=== PATIENT | female | born 1990 | race African-American/Black ===

== ENCOUNTER 2016-08-26 09:07 | Emergency (ER) | payer OTHER ==
[~2016-08-26] VITALS: Ht 167.6 cm; Wt 90.0 kg
[~2016-08-26 09:07] MED LIST: DIFL150T PO; METR-1 PO; VIBR50SY PO; Z.0.NO CURRENT MEDS
[2016-08-26 09:08] VITALS: BP 134/77; PULSE 104; RESP 20; TEMP 98.2; O2SAT 100
--- NOTE | 2016-08-26 09:47 | PD ---
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 Patient states his bleeding little bit more heavily than she does normally. She states that she had a cyst removed and the hospital in [place] some months ago most came back. She states only minimal pain. Denies any fever, denies any stool changes denies any nausea or vomiting. On review of systems patient does state that she feels somewhat weak. PFSH Past Medical History Diminished Hearing: No Tetanus Vaccination: Never Vaccinated ?: Not LMP: now : 2 Para: 1 Miscarriage: 1 Social History Alcohol Use: No Tobacco Use: Yes (OCCASIONALLY) Substance Use: No Allergies-Medications (Allergen,Severity, Reaction): Coded Allergies: No Known Allergies (Verified , 08/26/16) Reported Meds & Prescriptions Reported Meds & Active Scripts Active Iron High-Potency (Ferrous Sulfate) 325 Mg Tab 1 Tab PO DAILY Review of Systems Except as stated in HPI: all other systems reviewed are Neg Physical Exam Narrative GENERAL: Well-developed well-nourished no obvious distress. SKIN: Focused skin assessment warm/dry. HEAD: Atraumatic. Normocephalic. EYES: Pupils equal and round. No scleral icterus. No injection or drainage. ENT: No nasal bleeding or discharge. Mucous membranes pink and moist. NECK: Trachea midline. No JVD. CARDIOVASCULAR: Regular rate and rhythm. No murmur appreciated. RESPIRATORY: No accessory muscle use. Clear to auscultation. Breath sounds equal bilaterally. GASTROINTESTINAL: Abdomen soft, non-tender, nondistended. Hepatic and splenic margins not palpable. GENITOURINARY: Exam performed with female nurse heating and cooling technician present all times. Scant blood in the vaginal vault, no discharge, cervix closed, no vaginal trauma seen, grossly normal female external genitalia. MUSCULOSKELETAL: No obvious deformities. No clubbing. No cyanosis. No edema. NEUROLOGICAL: Awake and alert. No obvious cranial nerve deficits. Motor grossly within normal limits. Normal speech. PSYCHIATRIC: Appropriate mood and affect; insight and judgment normal. Data Data Last Documented VS Vital Signs Date Time Temp Pulse Resp B/P Pulse Ox O2 Delivery O2 Flow Rate FiO2 08/26/16 12:39 97 08/26/16 09:08 98.2 104 20 134/77 Room Air Orders Urinalysis - C+S If Indicated (08/26/16 09:21) Ed Urine Pregnancytest Poc (08/26/16 09:21) Gc And Chlamydia Pcr (08/26/16 09:22) Wet Prep Profile (08/26/16 09:22) Hemoglobin (Hgb) (08/26/16 09:47) Hematocrit (Hct) (08/26/16 09:47) Ibuprofen (Motrin) (08/26/16 10:00) Urine Culture (08/26/16 10:05) Us Pelvis Comp W Dop Transvag (08/26/16 09:59) Labs Laboratory Tests Test 08/26/16 08/26/16 08/27/16 10:05 11:35 20:38 Hemoglobin 8.3 GM/DL Hematocrit 27.7 % Urine Color YELLOW Urine Turbidity CLEAR Urine pH 7.5 Urine Specific [place] 1.017 Urine Protein TRACE mg/dL Urine Glucose (UA) NEG mg/dL Urine Ketones NEG mg/dL Urine Occult Blood LARGE Urine Nitrite NEG Urine Bilirubin NEG Urine Urobilinogen 2.0 MG/DL Urine Leukocyte Esterase TRACE Urine RBC 155 /hpf Urine WBC 9 /hpf Urine Squamous Epithelial 1 /hpf Cells Urine Bacteria OCC /hpf Urine Mucus FEW /lpf Microscopic Urinalysis Comment CULTURE INDICATED Clue Cells (Wet Prep) NONE SEEN Vaginal Trichomonas (Wet Prep) PRESENT Vaginal Yeast (Wet Prep) NONE SEEN Chlamydia trachomatis DNA NOT DETECTED (PCR) Neisseria gonorrhoeae DNA NOT DETECTED (PCR) Lab Scanned Report Lab Reports - Other [id number] [facility] Medical Decision Making Medical Screen Exam Complete: Yes Emergency Medical Condition: Yes Differential Diagnosis Anemia, dysfunctional uterine bleeding, ovarian cyst, . Narrative Course Patient roomed emerged permit, H&H shows the patient is moderately anemic with hemoglobin 8.7. She will be placed on ferrous sulfate and discharge. Ultrasound was ordered and shows no evidence of recurrence of the cyst, test negative. Patient appears well and in obvious distress. There is no indication further workup at this time. She stable for discharge. Discussed need for follow-up with her surgeon an DIRECTOR INDUSTRIAL RELATIONS. Discussed return to ED criteria. Diagnosis Primary Impression: Dysfunctional uterine bleeding Med/Other Pt SpecificInfo: Prescription(s) given Scripts Ferrous Sulfate (Iron High-Potency)325 Mg Tab1 Tab PO DAILY #30 Prov:Chris Lundberg MD 08/26/16 Disposition: 01 DISCHARGE HOME Condition: Stable Chris Lundberg MD Aug 26, 2016 09:47
[2016-08-26] MEDS ORDERED: IBUPROFEN 600 MG TAB PO ONE (10:00)
[2016-08-26 10:16] LABS: HEMATOCRIT 27.7 % (35.0-46.0)
[2016-08-26 10:38] LABS: BACTERIA, URINE OCC /hpf; BLOOD, URINE LARGE (NEG); COMMENT (UR) CULTURE INDICATED; CULTURE IF INDICATED CULTURE INDICATED; GLUCOSE,URINE NEG (NEG); KETONE, URINE NEG (NEG); MUCUS URINE FEW /lpf (OCC); NITRITE,URINE NEG (NEG); PH, URINE 7.5 (5.0-8.5); SQUAMOUS EPITHELIAL CELL URINE 1 /hpf (0-5); URINE COLOR YELLOW (YELLW/STRAW)
--- NOTE | 2016-08-26 12:22 | RADRPT ---
EXAM DATE/TIME: 08/26/2016 10:28 [place] COMPARISON: No previous studies available for comparison. INDICATIONS : Pelvic pain. MEDICAL HISTORY : Pelvic pain. SURGICAL HISTORY : None. ENCOUNTER: Initial ACUITY: 1 day PAIN SCORE: 3/10 LOCATION: Bilateral pelvis MEASUREMENTS: UTERUS: 9.1 x 5.1 x 4.5 cm ENDOMETRIAL STRIPE: 5 mm RIGHT OVARY: 3.6 x 2.6 x 1.9 cm LEFT OVARY: 3.6 x 2.9 x 2.0 cm FINDINGS: UTERUS: The myometrium has homogeneous echotexture without mass. Nabothian cysts are seen. RIGHT OVARY: Ovary contains no mass or significant cystic lesion. Normal flow. LEFT OVARY: Ovary contains no mass or significant cystic lesion. Normal flow. MISCELLANEOUS: No free fluid. CONCLUSION: 1. Unremarkable pelvic sonogram. Anthony Poon MD on August 26, 2016 at 12:19 Board Certified Radiologist. This report was verified electronically.
[2016-08-26] MEDS ORDERED: FERR1TAB52 PO (12:36)
[2016-08-26 15:15] LABS: CHLAMYDIA PCR NOT DETECTED (NOT DETECT); NEISSERIA PCR NOT DETECTED (NOT DETECT)
[2016-09-03] MEDS ORDERED: SPRI28TA PO (10:35)
== END 2016-08-26 12:46 | disposition home or self-care (01) ==
LOC: NEPD 09:07
DX: N93.8 Other specified abnormal uterine and vaginal bleeding (principal); R10.2 Pelvic and perineal pain; D64.9 Anemia, unspecified; E66.01 Morbid (severe) obesity due to excess calories; Z79.899 Other long term (current) drug therapy; Z72.0 Tobacco use
CPT/HCPCS: 76830; 76856; 81001; 84703; 85014; 85018; 87086; 87210; 87491; 87591; 93975

== ENCOUNTER 2016-08-31 | Emergency (ER) | payer OTHER ==
[~2016-08-31] MED LIST changes: -DIFL150T PO; +FERR1TAB52 PO; -METR-1 PO; -VIBR50SY PO; -Z.0.NO CURRENT MEDS
[2016-08-31 00:03] VITALS: BP 145/72; PULSE 110; RESP 16; TEMP 98.3; O2SAT 99
[2016-08-31 01:06] LABS: MEAN CORPUSCULAR HGB CONC 28.8 % (32.0-36.0)
--- NOTE | 2016-08-31 01:33 | PD ---
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 The patient reports that she has irregular cycles. She has difficulty quantifying exactly when her last cycle was. She reports that she has a history of irregular cycles. She reports that her cycles usually last for weeks when they occur. She reports that she usually will have a cycle every other month. She cannot recall the name of her ADMINISTRATIVE SUPPORT TECHNICIAN. She was seen in the emergency department on August 26 related to the vaginal bleeding. At that time the patient was noted to be anemic with a hemoglobin of 8.3. The patient reports that she was prescribed iron, however she continues to have bleeding. She reports that she feels weak with exertion. She reports that she has had a blood transfusion in the past. She reports that she had a blood transfusion related to dysfunctional uterine bleeding when she was at [facility] a couple months ago. She reports that her ADMINISTRATIVE SUPPORT TECHNICIAN was in that area and she would prefer to follow-up with an ADMINISTRATIVE SUPPORT TECHNICIAN in this area. The patient denies any recent fevers, cough, congestion, neck pain, chest pain, shortness of breath , vomiting, diarrhea, or neurologic symptoms. LMP: 2 weeks ago. [facility] Past Medical History Narrative Medical The patient's past medical history is significant for dysfunctional uterine bleeding requiring a blood transfusion, last blood transfusion was reportedly 2 months ago. Diminished Hearing: No Tetanus Vaccination: > 5 Years Influenza Vaccination: No ?: Unknown LMP: irregular : 2 Para: 1 Miscarriage: 1 Past Surgical History Narrative Surgical The patient's past surgical history is unremarkable. Social History Alcohol Use: No Tobacco Use: Yes (OCCASIONALLY) Substance Use: No Allergies-Medications (Allergen,Severity, Reaction): Coded Allergies: No Known Allergies (Verified , 08/31/16) Reported Meds & Prescriptions Reported Meds & Active Scripts Active Iron High-Potency (Ferrous Sulfate) 325 Mg Tab 1 Tab PO DAILY Review of Systems Except as stated in HPI: all other systems reviewed are Neg General / Constitutional: No: Fever Eyes: No: Visual changes HENT: No: Headaches Cardiovascular: No: Chest Pain or Discomfort Respiratory: No: Shortness of Breath Gastrointestinal: Positive: Abdominal Pain, No: Nausea (cramping), Vomiting, Diarrhea, Changes in Bowel Habits, Indigestion, Loss of Appetite Genitourinary: Positive: Frequency, Pelvic Pain, Vaginal Bleeding, No: Urgency , Dysuria Musculoskeletal: No: Pain Skin: No Rash Neurologic: Positive: Weakness (generalized weakness), No: Focal Abnormalities , Change in Mentation, Slurred Speech, Sensory Disturbance Psychiatric: No: Depression Endocrine: No: Polydipsia Hematologic/Lymphatic: No: Easy Bruising Physical Exam Narrative General: The patient is a well-developed well-nourished female in no acute distress. Head and Neck exam: Head is normocephalic atraumatic. Eyes: EOMI, pupils are equal round and reactive to light. Nose: Midline septum with pink mucous membranes Mouth: Dentition unremarkable. Moist mucus membranes. Posterior oropharynx is not erythematous. No tonsillar hypertrophy. Uvula midline. Airway patent. Neck: No palpable lymphadenopathy. No nuchal rigidity. No thyromegaly. Cardiovascular: Regular rate and rhythm without murmurs, gallops, or rubs. No pulse deficit to the extremities. Lungs: Clear to auscultation bilaterally. No wheezes, rhonchi, or rales. Abdomen: Soft, without tenderness to palpation in all 4 quadrants of the abdomen. No guarding, rebound, or rigidity. Negative [place] sign. Extremities: No clubbing, cyanosis, or edema. 2+ pulses in all 4 extremities. Back: No spinous process tenderness to palpation. No costovertebral angle tenderness to palpation. Neurologic Exam: Cranial nerves 2-12 were intact on exam. Strength is 5/5 in all 4 extremities. No sensory deficits noted. No dysdiadochokinesis. Good finger to nose and Heel to [place] bilaterally. Skin Exam: No rash noted. Intact skin that is warm and dry. Data Data Last Documented VS Vital Signs Date Time Temp Pulse Resp B/P Pulse Ox O2 Delivery O2 Flow Rate FiO2 08/31/16 07:29 98.6 93 19 114/56 100 Room Air Orders Complete Blood Count With Diff (08/31/16 01:04) Comprehensive Metabolic Panel (08/31/16 01:04) Prothrombin Time / Inr (Pt) (08/31/16 01:04) Act Partial Throm Time (Ptt) (08/31/16 01:04) C-Reactive Protein (Crp) (08/31/16 01:04) Lipase (08/31/16 01:04) Urinalysis - C+S If Indicated (08/31/16 01:04) Thyroid Stimulating Hormone (08/31/16 01:04) Iv Access Insert/Monitor (08/31/16 01:04) Ecg Monitoring (08/31/16 01:04) Oximetry (08/31/16 01:04) Metronidazole (Flagyl) (08/31/16 02:00) Urine Culture (08/31/16 01:45) Ceftriaxone Inj (Rocephin Inj) (08/31/16 03:00) Sodium Chlor 0.9% 250 Ml Inj (Ns 250 Ml (08/31/16 03:15) Red Blood Cells (Rbc) (08/31/16 03:01) Sodium Chlor 0.9% 250 Ml Inj (Ns 250 Ml (08/31/16 03:15) Type And Screen (08/31/16 03:01) Blood Product Administration .UPON TRANSFUSION (08/31/16 03:48) Sodium Chlor 0.9% 250 Ml Inj (Ns 250 Ml (08/31/16 04:00) Labs Laboratory Tests Test 08/31/16 08/31/16 08/31/16 01:45 02:00 04:22 Urine Color YELLOW Urine Turbidity HAZY Urine pH 6.0 Urine Specific [place] 1.031 Urine Protein 30 mg/dL Urine Glucose (UA) NEG mg/dL Urine Ketones TRACE mg/dL Urine Occult Blood LARGE Urine Nitrite NEG Urine Bilirubin NEG Urine Urobilinogen 2.0 MG/DL Urine Leukocyte Esterase LARGE Urine RBC /hpf Urine WBC 59 /hpf Urine Squamous Epithelial 2 /hpf Cells Urine Bacteria RARE /hpf Urine Mucus MANY /lpf Urine Yeast (Budding) OCC Microscopic Urinalysis Comment CULTURE INDICATED White Blood Count 15.5 TH/MM3 Red Blood Count 4.12 MIL/MM3 Hemoglobin 7.3 GM/DL Hematocrit 25.3 % Mean Corpuscular Volume 61.4 FL Mean Corpuscular Hemoglobin 17.7 PG Mean Corpuscular Hemoglobin 28.8 % Concent Red Cell Distribution Width 21.8 % Platelet Count 230 TH/MM3 Mean Platelet Volume 8.4 FL Neutrophils (%) (Auto) 67.6 % Lymphocytes (%) (Auto) 24.5 % Monocytes (%) (Auto) 6.5 % Eosinophils (%) (Auto) 0.5 % Basophils (%) (Auto) 0.9 % Neutrophils # (Auto) 10.5 TH/MM3 Lymphocytes # (Auto) 3.8 TH/MM3 Monocytes # (Auto) 1.0 TH/MM3 Eosinophils # (Auto) 0.1 TH/MM3 Basophils # (Auto) 0.1 TH/MM3 CBC Comment AUTO DIFF Differential Comment AUTO DIFF CONFIRMED Platelet Estimate NORMAL Platelet Morphology Comment NORMAL Target Cells 1+ Ovalocytes 1+ Prothrombin Time 11.1 SEC Prothromb Time International 1.0 RATIO Ratio Activated Partial 23.7 SEC Thromboplast Time Sodium Level 139 MEQ/L Potassium Level 3.6 MEQ/L Chloride Level 104 MEQ/L Carbon Dioxide Level 25.7 MEQ/L Anion Gap 9 MEQ/L Blood Urea Nitrogen 8 MG/DL Creatinine 1.04 MG/DL Estimat Glomerular Filtration 77 ML/MIN Rate Random Glucose 88 MG/DL Calcium Level 8.4 MG/DL Total Bilirubin 0.3 MG/DL Aspartate Amino Transf 17 U/L (AST/SGOT) Alanine Aminotransferase 21 U/L (ALT/SGPT) Alkaline Phosphatase 71 U/L C-Reactive Protein 0.42 MG/DL Total Protein 7.5 GM/DL Albumin 3.1 GM/DL Lipase 310 U/L Thyroid Stimulating Hormone 1.190 uIU/ML 3rd Gen Blood Type A POSITIVE A POSITIVE Antibody Screen NEGATIVE Crossmatch Leukocyte-Reduced Red Blood Cells Blood Bank Comment MDM Medical Decision Making Medical Screen Exam Complete: Yes Emergency Medical Condition: Yes Medical Record Reviewed: Yes Differential Diagnosis Dysfunctional uterine bleeding related to hormonal imbalance, versus fibroids, versus adenomyosis. Narrative Course During the course of the patients emergency department visit, the patients history, examination, and differential diagnosis were reviewed with the patient. The patient had IV access obtained and blood work sent for analysis. The patient's was on a cardiac catheterization technologist with oximetry and blood pressure monitoring. The patient's electronic medical record was reviewed. The patient was last seen in the emergency department on August 26. The patient had a hemoglobin done at that time that was noted to be 8.3. The patient had a wet prep done that was positive for trichomoniasis. She reports that she was not treated for this. The patient was initially provided Flagyl 500 mg by mouth. The patients laboratory studies were reviewed and remarkable for a white count of 15.5, hemoglobin 7.3, platelets 230 with 67.6 neutrophils, lymphocytes 24.5, monocytes 6.5, CMP is remarkable for creatinine of 1.04, calcium 8.4, C- reactive protein 0.42, albumin 3.1, lipase 310, TSH 1.19, PT PTT unremarkable, urinalysis shows trace ketones large occult blood, large leukocyte esterase, RBCs innumerable, wbc's 59, only 2 squamous epithelial cells, rare bacteria. The patient was treated with Rocephin 1 g IV for suspected urinary tract infection complicating her vaginal bleeding from dysfunctional uterine bleeding. Given the patient's progressive anemia and reported generalized weakness the patient was written to be transfused 1 unit packed red blood cells. I did discuss this with the hospitalist who recommended that the patient be placed in an ED hold for transfusion and then discharged home. I also spoke to Dr. Alberto, the potato seed cutter on-call was agreeable with this plan and to see the patient in follow-up. The patient is resting comfortably and feels better, is alert and in no distress. The patients results and examination findings were discussed with the patient. The repeat examination is unremarkable and benign. The history, exam, diagnostic testing, and current condition do not suggest any significant pathology to warrant further testing, continued ED treatment, admission, or surgical evaluation at this point. The vital signs have been stable. The patient does not have uncontrollable pain, intractable vomiting, or other significant symptoms. The patient's condition is stable and appropriate for discharge. The patient will pursue further outpatient evaluation with a primary care physician or other designated or consulting physician as indicated in the discharge instructions. The patient expressed understanding and was agreeable with this plan. Physician Communication Physician Communication I spoke to regarding this patient's case. She recommended that the patient be admitted to gynecology if the patient requires admission. I spoke to Dr. Alberto at approximately 3:45 AM regarding this patient's case. He recommended that the patient be admitted to medicine if she required a blood transfusion. A call was then placed out to Dr. Chase again regarding this patient's case. She recommended that if the patient only required a single unit of packed red blood cells that the patient be given this in the emergency department and then follow-up as an outpatient with gynecology. The patient will have a single unit of packed red blood cells administered. The patient will then be given the name of the potato seed cutter cardiac catheterization technologist that I spoke to regarding her case, Dr. Alberto for follow-up with this week. Diagnosis Primary Impression: Dysfunctional uterine bleeding Additional Impression: Symptomatic anemia Referrals: Alexi Alberto MD 2 days Patient Instructions: Anemia (ED), Dysfunctional Uterine Bleeding (ED), General Instructions Additional Instructions: The patient is instructed to continue on the iron supplement. Med/Other Pt SpecificInfo: No Change to Meds Disposition: 01 DISCHARGE HOME Condition: Stable Carolyn Boucher MD Aug 31, 2016 01:33
[2016-08-31] MEDS ORDERED: metroNIDAZOLE 500 MG TAB PO ONE (02:00)
[2016-08-31 02:10] LABS: BACTERIA, URINE RARE /hpf; BLOOD, URINE LARGE (NEG); COMMENT (UR) CULTURE INDICATED; CULTURE IF INDICATED CULTURE INDICATED; GLUCOSE,URINE NEG (NEG); KETONE, URINE TRACE mg/dL (NEG); MUCUS URINE MANY /lpf (OCC); NITRITE,URINE NEG (NEG); SQUAMOUS EPITHELIAL CELL URINE 2 /hpf (0-5); URINE COLOR YELLOW (YELLW/STRAW)
[2016-08-31 02:34] LABS: APTT (PATIENT) 23.7 SEC (24.3-30.1); PROTHROMBIN TIME - PATIENT 11.1 SEC (9.8-11.6)
[2016-08-31 02:44] LABS: AUTOMATED NEUTROPHIL # 10.5 TH/MM3 (1.8-7.7); BASOPHIL # 0.1 TH/MM3 (0-0.2); BASOPHIL % 0.9 % (0.0-2.0); EOSINOPHIL # 0.1 TH/MM3 (0-0.4); EOSINOPHIL % 0.5 % (0.0-4.0); HEMATOCRIT 25.3 % (35.0-46.0); LYMPH % 24.5 % (9.0-44.0); LYMPHOCYTE # 3.8 TH/MM3 (1.0-4.8); MEAN CELL VOLUME 61.4 FL (80.0-100.0); MEAN CORPUSCULAR HEMOGLOBIN 17.7 PG (27.0-34.0); MONO % 6.5 % (0.0-8.0); NEUT % 67.6 % (16.0-70.0); RED BLOOD COUNT 4.12 MIL/MM3 (4.00-5.30); RED CELL DISTRIBUTION WIDTH 21.8 % (11.6-17.2); WHITE BLOOD COUNT 15.5 TH/MM3 (4.0-11.0)
[2016-08-31 02:49] LABS: HEMO FLAGS AUTO DIFF
[2016-08-31] MEDS ORDERED: cefTRIAXone INJ 1,000 MG in SODIUM CHLORIDE 0.9% INJ 100 ML IV ONE (03:00)
[2016-08-31 03:04] LABS: ALT (GPT) 21 U/L (10-53); ANION GAP 9 MEQ/L (5-15); AST (GOT) 17 U/L (15-37); BICARBONATE 25.7 MEQ/L (21.0-32.0); BLOOD UREA NITROGEN 8 MG/DL (7-18); CHLORIDE 104 MEQ/L (98-107); GLOMERULAR FILTRATION RATE 77 ML/MIN (>89); POTASSIUM 3.6 MEQ/L (3.5-5.1); SODIUM (NA) 139 MEQ/L (136-145)
[2016-08-31 03:15] LABS: ALKALINE PHOSPHATASE 71 U/L (45-117); TOTAL BILIRUBIN ADULT 0.3 MG/DL (0.2-1.0)
[2016-08-31] MEDS ORDERED: SODIUM CHLOR 0.9% 250 ML INJ 250 ML IV ONE ×3 (03:15→04:00)
[2016-08-31 03:32] LABS: PLATELET COUNT 230 TH/MM3 (150-450)
[2016-08-31 03:33] LABS: OVALOCYTES 1+ (NORMAL); PLATELET ESTIMATE SMEAR NORMAL (NORMAL); PLATELET MORPHOLOGY NORMAL (NORMAL); TARGET CELLS 1+ (NORMAL)
[2016-08-31 03:34] LABS: SCAN/DIFF AUTO DIFF CONFIRMED
[2016-08-31 03:45] VITALS: BP 125/62; PULSE 102; RESP 18; O2SAT 99
[2016-08-31 06:52] VITALS: BP 119/57; PULSE 95; RESP 18; TEMP 98.6; O2SAT 100
[2016-08-31 07:14] VITALS: BP 103/55; PULSE 90; RESP 17; TEMP 98.4; O2SAT 100
[2016-08-31 07:29] VITALS: BP 114/56; PULSE 93; RESP 19; TEMP 98.6; O2SAT 100
[2016-08-31 11:00] VITALS: BP 112/55; PULSE 93; RESP 17; TEMP 98.7; O2SAT 99
[2016-09-03] MEDS ORDERED: SPRI28TA PO (10:35)
== END 2016-08-31 11:39 | disposition home or self-care (01) ==
LOC: NEPE
DX: N93.8 Other specified abnormal uterine and vaginal bleeding (principal); D64.9 Anemia, unspecified; R53.1 Weakness; Z72.0 Tobacco use
CPT/HCPCS: 36430; 80053; 81001; 83690; 84443; 85025; 85610; 85730; 86140; 86850; 86900; 86901; 86920; 87086; 96361; 96374; 99285; J0696; J7050; P9016

== ENCOUNTER 2017-03-20 14:03 | Emergency (ER) | payer OTHER ==
[~2017-03-20] VITALS: Ht 167.6 cm; Wt 100.0 kg
[~2017-03-20 14:03] MED LIST changes: -FERR1TAB52 PO; +FERR325T98 PO; +SPRI28TA PO
[2017-03-20 14:06] VITALS: BP 131/74; PULSE 133; RESP 15; TEMP 99.1; O2SAT 100
[2017-03-20 14:36] VITALS: PULSE 110; RESP 18; O2SAT 100
[2017-03-20] MEDS ORDERED: AMOX500C PO (14:43)
[2017-03-20] MEDS ORDERED: PERI0.126 SWISH-SPIT (14:43)
[2017-03-20] MEDS ORDERED: IBUP1TAB7 PO (14:43)
--- NOTE | 2017-03-20 14:44 | PD ---
HPI Chief Complaint: Oral / Dental Pain or Problem Time Seen by Provider: 14:32 Travel History International Travel<30 days: No Contact w/Intl Traveler<30days: No Traveled to known affect area: No History of Present Illness HPI When he [id number] female presents to the emergency Department with complaint of right upper tooth "abscess "times one week. Denies fever, vomiting. Denies sore throat, difficulty swallowing, unusual drooling. Has taken Aleve for symptom management. Pain is constant. Rates pain 10/10. No known relieving or aggravating factors. Has not followed up with a dentist or been on any antibiotics previously. No primary care provider. No known allergies. Denies significant past medical history. Has no medical complaints. No other modifying factors or associated signs and symptoms. PFSH Past Medical History Medical History: Denies Significant Hx Diminished Hearing: No Tetanus Vaccination: < 5 Years ?: Not : 2 Para: 1 Miscarriage: 1 Past Surgical History Surgical History: No Previous Surgery Social History Alcohol Use: Yes (OCC) Tobacco Use: Yes (OCCASIONALLY) Substance Use: No Allergies-Medications (Allergen,Severity, Reaction): Coded Allergies: No Known Allergies (Verified Adverse Reaction, Unknown, 03/20/17) Reported Meds & Prescriptions Reported Meds & Active Scripts Active Ibuprofen 800 Mg Tab 800 Mg PO Q6HR PRN Peridex Liq (Chlorhexidine Gluconate (Mouth) Liq) 0.12% Soln 15 Ml SWISH-SPIT BID 10 Days Amoxicillin 500 Mg Cap 500 Mg PO BID 10 Days Sprintec 28 (Norgestimate-Ethinyl Estradiol) 0.25-35 mg-Mcg Tab 1 Tab PO DAILY Review of Systems Except as stated in HPI: all other systems reviewed are Neg Physical Exam Narrative GENERAL: Well-nourished, well-developed black female patient, in no acute distress; afebrile, nontoxic-appearing SKIN: Warm and dry. HEAD: Atraumatic. Normocephalic. No facial edema, erythema, tenderness on palpation. No lymphadenopathy. EYES: Pupils equal and round. No scleral icterus. No injection or drainage. ENT: Mucosa pink and moist. No erythema or exudates. No uvular edema. No uvular , palatal, or tonsillar deviation. Airway patent. EARS: Bilateral pinnae and external canals appear within normal limits. Bilateral tympanic membranes without erythema, dullness or perforation. MOUTH: Mucous membranes moist, no lesions, tongue and gums appear normal. Right upper second molar with large dental cavity and with tenderness on palpation. Surrounding gingiva is without erythema, edema, drainage. No obvious abscess noted. NECK: Trachea midline. No lymphadenopathy. CARDIOVASCULAR: Regular rate. RESPIRATORY: No accessory muscle use. GASTROINTESTINAL: Obese. MUSCULOSKELETAL: No obvious deformities. No clubbing. No cyanosis. No edema. NEUROLOGICAL: Awake and alert. Oriented 3. No obvious cranial nerve deficits. Motor grossly within normal limits. Normal speech. PSYCHIATRIC: Appropriate mood and affect; insight and judgment normal. Data Data Last Documented VS Vital Signs Date Time Temp Pulse Resp B/P (MAP) Pulse Ox O2 Delivery O2 Flow Rate FiO2 03/20/17 14:36 110 18 100 03/20/17 14:06 99.1 Orders Orders Ed Discharge Order (03/20/17 14:44) Ibuprofen (Motrin) (03/20/17 14:45) MDM Medical Decision Making Medical Screen Exam Complete: Yes Emergency Medical Condition: Yes Medical Record Reviewed: Yes Differential Diagnosis Dental abscess, dentalgia, dental cavity, gingivitis Narrative Course 27-year-old female with right upper second molar with large dental cavity and tenderness on palpation. No facial edema or erythema. Patient is afebrile and nontoxic-appearing. Denies fever, vomiting. Ibuprofen administered in the ER. Patient drinking Gatorade during physical exam. Patient provided emergency dental information sheet. Amoxicillin, Peridex mouth rinse, ibuprofen prescribed for home. Instructed patient to follow up with dentist. Instructed patient to follow up with primary care provider. Patient verbalizes understanding and agreement with treatment plan. Patient is medically cleared and stable for discharge. Discussed reasons to return to the emergency department. Patient agrees with treatment plan. The patients vital signs are stable and the patient is stable for outpatient follow-up and treatment. Patient discharged home, stable and in no acute distress. Diagnosis Primary Impression: Tooth pain Additional Impression: Dental cavity Referrals: [facility]ist Primary Care Physician Patient Instructions: Dental Abscess (ED), Dental Caries (ED), General Instructions, Toothache (ED) Departure Forms: Tests/Procedures, Work Release Enter return to work date: Mar 21, 2017 Additional Instructions: Complete full course of antibiotics Ibuprofen or Tylenol as directed and as needed to reduce pain and inflammation Use Peridex as directed for oral hygiene Warm or cool compresses to the affected area Follow-up with dentist Follow-up with primary care provider Return to emergency department immediately with worsening of symptoms Med/Other Pt SpecificInfo: Prescription(s) given Scripts Ibuprofen (Ibuprofen) 800 Mg Tab 800 MG PO Q6HR Y for PAIN, #30 TAB 0 Refills Prov: Magda Marino 03/20/17 Chlorhexidine Gluconate (Mouth) Liq (Peridex Liq) 0.12% Soln 15 ML SWISH-SPIT BID for 10 Days, #300 ML 0 Refills Prov: Magda Marino 03/20/17 Amoxicillin (Amoxicillin) 500 Mg Cap 500 MG PO BID for Infection for 10 Days, #20 CAP 0 Refills Prov: Magda Marino 03/20/17 Disposition: 01 DISCHARGE HOME Condition: Stable Magda Marino Mar 20, 2017 14:44
[2017-03-20] MEDS ORDERED: IBUPROFEN 800 MG TAB PO ONE (14:45)
== END 2017-03-20 15:14 | disposition home or self-care (01) ==
LOC: NEPD 14:03
DX: K08.89 Other specified disorders of teeth and supporting structures (principal); K02.9 Dental caries, unspecified; Z72.0 Tobacco use
CPT/HCPCS: 99283